=== PATIENT | female | born 1945 | race Caucasian/White ===

== ENCOUNTER 2024-02-07 16:56 | Emergency (ER) | payer MEDICARE, SELFPAY ==
[2024-02-07 17:28] VITALS: BP 134/66; PULSE 84; RESP 20; TEMP 36.9; O2SAT 99
--- NOTE | 2024-02-07 17:53 | ED.URI ---
HPI - URI/Sore Throat General Chief Complaint: Upper Respiratory Infection Stated Complaint: Sinus Time Seen by Provider: 02/07/24 17:50 Source: patient and RN notes reviewed Mode of arrival: ambulatory Limitations: no limitations History of Present Illness HPI Narrative: 78-year-old female presents with concern for chest congestion, sinus congestion for 3 days. She reports she has been blowing blood clots out of her nose. She reports history AFib. She reports fatigue, general malaise. Denies fever, chills, sweats. She denies nausea, vomiting, diarrhea. Reports exertional shortness of breath. MD elicited complaint: cough and nasal congestion Related Data Home Medications Medication Instructions Recorded Confirmed blood sugar diagnostic (Accu-Chek 02/07/24 02/07/24 Guide test strips) carvedilol 12.5 mg tablet mg 02/07/24 flash glucose scanning reader 02/07/24 02/07/24 (FreeStyle Devan 2 [place]) flash glucose sensor (FreeStyle 02/07/24 02/07/24 Devan 2 Sensor kit) glyburide 2.5 mg tablet mg 02/07/24 insulin degludec 200 unit/mL (3 unit subcut 02/07/24 mL) subcutaneous pen (Tresiba FlexTouch U-200 insulin) lancets (Accu-Chek Fastclix Lancet 02/07/24 02/07/24 Drum) levothyroxine 75 mcg tablet mcg 02/07/24 losartan 100 mg tablet mg 02/07/24 lovastatin 20 mg tablet mg 02/07/24 metformin 1,000 mg tablet mg 02/07/24 montelukast 10 mg tablet mg 02/07/24 oxybutynin chloride 5 mg tablet mg 02/07/24 pen needle, diabetic 32 gauge x 02/07/24 02/07/2432 (BD Bertha 2nd Gen Pen Needle) pregabalin 100 mg capsule mg 02/07/24 rivaroxaban 20 mg tablet (Xarelto) mg 02/07/24 ropinirole 0.5 mg tablet mg 02/07/24 Allergies Allergy/AdvReac Type Severity Reaction Status Date / Time No Known Allergies Allergy Verified 02/07/24 18:21 Review of Systems Review of Systems: CONSTITUTIONAL: Reports malaise, fatigue. Denies chills, sweats, or fever. EYES: Denies visual changes, redness, or discharge. ENT: Reports rhinorrhea, congestion, sinus pain, otalgia CARDIOVASCULAR: Denies chest pain, palpitations, or edema. RESPIRATORY: Reports cough COVID test congestion a couple dyspnea. GASTROINTESTINAL: Denies abdominal pain, nausea, vomiting, diarrhea SKIN: Denies rash or itching. MUSCULOSKELETAL: Denies myalgia. NEUROLOGIC: Denies headache. All systems reviewed & are unremarkable except as noted in HPI and below PMFSH Comments At time of signature, agree with nursing past medical, surgical, social and family history. There is no relevant family history pertinent to the presenting complaint Exam Narrative: GENERAL: Nontoxic-appearing, well-nourished, and in no acute distress. HEAD: Normocephalic EYES: PERRLA, conjunctivae clear ENT: Nares clear, turbinates edematous and erythematous. Mucous membranes moist. TM pearly martinez with dull light reflex bilaterally; no tragal tenderness. Oropharynx not erythematous without lesions. Tonsils not enlarged and without exudate, no drooling, no hoarseness, no trismus, uvula midline. NECK: Supple. No lymphadenopathy CHEST: Clear to auscultation, breath sounds equal. No wheezing, rhonchi, rales, or stridor. No respiratory distress, speaks in full sentences. Barking cough noted HEART: Regular rate and rhythm. No murmur heard. SKIN: Warm, dry, no rash. NEURO: Alert and oriented x3. PSYCH: Normal mood and affect Course Course Emergency Course: Patient is aware of diagnosis, understands and agrees to treatment plan. Anticipatory guidance given. Patient agrees to follow-up as directed and is aware of reasons to seek care at the emergency department. Portions of this record may have been created with voice recognition software Level of Care: Express Care Visit Vital Signs Vital signs: Vital Signs Temperature 98.5 F 02/07/24 17:28 Pulse Rate 84 02/07/24 17:28 Respiratory Rate 20 02/07/24 17:28 Blood Pressure 134/66 02/07/24 17:28 Pulse Oxim
== END 2024-02-07 18:30 | disposition home or self-care (01) ==
PROVIDERS: Emergency Provider Nurse Practitioner; PCP Family Medicine
DX: J32.9 Chronic sinusitis, unspecified (principal); J40 Bronchitis, not specified as acute or chronic; Z20.822 Contact with and (suspected) exposure to COVID-19; I48.91 Unspecified atrial fibrillation; E78.00 Pure hypercholesterolemia, unspecified; I10 Essential (primary) hypertension; M19.90 Unspecified osteoarthritis, unspecified site; E11.9 Type 2 diabetes mellitus without complications; E03.9 Hypothyroidism, unspecified
CPT/HCPCS: 87426; 87804; 99213; G0463